=== PATIENT | female | born 1995 | race Caucasian/White ===

== ENCOUNTER 2017-09-13 18:34 | Emergency (ER) | payer MEDICAID, OTHER ==
[2017-09-13 18:34] VITALS: BMI 23.6
[2017-09-13 19:52] LABS: HCG,QUALITATIVE URINE POSITIVE (NEGATIVE)
[2017-09-13 19:57] LABS: SQUAMOUS EPITHIAL 3 /hpf (0-5); URINE BACTERIA RARE (<OCC); URINE BILIRUBIN NEGATIVE (NEGATIVE); URINE BLOOD NEGATIVE (NEGATIVE); URINE CLARITY Clear (Clear); URINE COLOR Colorless (YELLOW); URINE GLUCOSE (UA) NORMAL (Normal); URINE LEUKOCYTE ESTERASE NEG Leu/uL (Negative); URINE PROTEIN NEGATIVE (NEGATIVE); URINE UROBILINOGEN NORMAL mg/dL (0.2-1.0)
[2017-09-13 20:13] LABS: BASO # 0.1 K/uL (0.0-0.2); BASO % 0.7 % (0.0-2.0); EOS # 0.5 K/uL (0.0-0.7); EOS % 5.4 % (0.0-4.0); LYMPH # 2.2 K/uL (1.0-4.3); LYMPH % 25.3 % (20.0-40.0); MEAN CELL VOLUME 90.9 fL (81.0-99.0); MEAN CORPUSCULAR HEMOGLOBIN 31.6 pg (27.0-31.0); MEAN CORPUSCULAR HGB CONC 34.7 g/dL (33.0-37.0); MEAN PLATELET VOLUME 8.7 fL (7.2-11.7); MONO # 0.8 K/uL (0.0-0.8); MONO % 8.9 % (0.0-10.0); NEUT # 5.2 K/uL (1.8-7.0); NEUT % 59.7 % (50.0-75.0); RBC 3.79 Mil/uL (3.80-5.20); RED CELL DISTRIBUTION WIDTH 12.3 % (11.5-14.5); WHITE BLOOD COUNT 8.8 K/uL (4.8-10.8)
[2017-09-13 20:24] LABS: ALB/GLOB RATIO 1.1 (1.0-2.1); ALBUMIN 3.8 g/dL (3.5-5.0); ALT/SGPT 17 U/L (9-52); AST/SGOT 17 U/L (14-36); BLOOD UREA NITROGEN 9 mg/dL (7-17); CALCIUM 8.4 mg/dl (8.6-10.4); GFR AFRICAN-AMERICAN > 60; GFR NON-AFRICAN AMERICAN > 60
--- NOTE | 2017-09-13 22:30 | US ---
EXAM: US Pelvis Complete, Transabdominal US Duplex Arterial/Venous of the Pelvis, Complete EXAM DATE/TIME: Exam ordered 09/13/2017 7:57 PM CLINICAL HISTORY: 21 years old, female; Signs and symptoms; Lmp or gestational age (in weeks): 2-9-18; Other: Vag bleed; ; Additional info: Pregancy, bleeding TECHNIQUE: Real-time transabdominal pelvic ultrasound (complete) with image documentationReal-time duplex ultrasound scan of the arterial and venous flow of the pelvis with color Doppler flow and spectral waveform analysis. COMPARISON: No relevant prior studies available. FINDINGS: Uterus/cervix: The uterus measures 12.9 x 6.7 x 7.9 cm. The cervix measures a 3.6 cm in length. . There is a single intrauterine gestational sac measuring 3.7 x 2.0 x 3.7 6 cm for a mean sac diameter of 3.5 cm for menstrual age of 8 weeks and 4 days. A yolk sac is present. The amnion is visible. There is a pole the crown-rump length measurement of 1.96 cm for a menstrual age of 8 weeks and 4 days. Cardiac activity is noted at a rate of 163 beats per minute. A subchorionic hemorrhage is present along the left lateral margin of the gestational sac measured 2.5 x 1.6 x 1.3 cm. Right ovary: The right ovary measures 3.8 x 2.1 x 3.3 cm.. A hypoechoic area with a hypervascular rim is noted in the right ovary. The appearance is consistent with a normal corpus luteum cyst. It measures 2 cm in greatest diameter. No torsion. Left ovary: The left ovary measures 3.1 x 1.6 x 2.6 cm. Blood flow is seen in the left ovary on color Doppler examination. Free fluid: No free fluid. Bladder: Unremarkable as visualized. Wall is normal thickness for degree of distention. IMPRESSION: 1. Single live intrauterine with an estimated menstrual age of 8 weeks and 4 days plus or -0 weeks and 4 days. Expected date of delivery 04/21/2018.. 2. Small subchorionic hemorrhage.
--- NOTE | 2017-09-13 22:36 | C.PDOC ---
History Of Present Illness 21 year old female presents to the ED complaining of vaginal spotting joana began today. Patient is currently 8 weeks . Denies any dysuria, abdominal or pelvic pain, nausea, vomiting, or fever. Time Seen by Provider: 09/13/17 19:39 Chief Complaint (Nursing): Female Genitourinary History Per: Patient History/Exam Limitations: no limitations Onset/Duration Of Symptoms: Days (x1) Current Symptoms Are (Timing): Still Present Severity: None Pain Scale Rating Of: 0 Abnormal Vaginal Bleeding: Yes Last Menstral Period: 07/16/17 : 2 Para: 1 Past Medical History Reviewed: Historical Data, Nursing Documentation, Vital Signs Vital Signs: Last Vital Signs Temp 98.5 F 09/13/17 23:18 Pulse 63 09/13/17 23:18 Resp 18 09/13/17 23:18 BP 97/64 L 09/13/17 23:18 Pulse Ox 97 09/13/17 23:18 - Medical History PMH: No Chronic Diseases Surgical History: No Surg Hx - [facility] Procedures INJECT RH IMMUNE GLOBUL (04/19/14) MANUAL ASSIST DELIV NEC (04/19/14) REPAIR OB LACERATION NEC (04/19/14) Family History: States: No Known Family Hx - Social History Hx Alcohol Use: No Hx Substance Use: No - Immunization History Hx Tetanus Toxoid Vaccination: No Hx Influenza Vaccination: No Hx Pneumococcal Vaccination: No Review Of Systems Except As Marked, All Systems Reviewed And Found Negative. Genitourinary: Positive for: Vaginal Bleeding Physical Exam - Physical Exam Appears: Non-toxic, No Acute Distress Skin: Normal Color, Warm, Dry Head: Atraumatic, Normacephalic Eye(s): bilateral: Normal Inspection, PERRL, EOMI Oral Mucosa: Moist Neck: Normal ROM, Supple Chest: Symmetrical Cardiovascular: Rhythm Regular, No Murmur Respiratory: Normal Breath Sounds, No Accessory Muscle Use, No Rales, No Rhonchi , No Wheezing Gastrointestinal/Abdominal: Soft, No Tenderness, No Guarding, No Rebound Extremity: Bilateral: Atraumatic, Normal Color And Temperature, Normal ROM Neurological/Psych: Oriented x3, Normal Speech Gait: Steady ED Course And Treatment - Laboratory Results Result Diagrams: 09/13/17 20:09 09/13/17 20:09 O2 Sat by Pulse Oximetry: 98 (RA) Pulse Ox Interpretation: Normal - CT Scan/US US Other Rad Studies (CT/US): Read By Radiologist, Radiology Report Reviewed CT/US Interpretation: FINDINGS: Uterus/cervix: The uterus measures 12.9 x 6.7 x 7.9 cm. The cervix measures a 3.6 cm in length. . There is a single intrauterine gestational sac measuring 3.7 x 2.0 x 3.7 6 cm for a mean sac diameter. of 3.5 cm for menstrual age of 8 weeks and 4 days. A yolk sac is present. The amnion is visible. There is a pole the crown-rump length measurement of 1.96 cm for a menstrual age of 8 weeks. and 4 days. Cardiac activity is noted at a rate of 163 beats per minute. A subchorionic hemorrhage is present along the left lateral margin of the gestational sac measured. 2.5 x 1.6 x 1.3 cm. Right ovary: The right ovary measures 3.8 x 2.1 x 3.3 cm.. A hypoechoic area with a hypervascular. rim is noted in the right ovary. The appearance is consistent with a normal corpus luteum cyst. It. measures 2 cm in greatest diameter. No torsion. Left ovary: The left ovary measures 3.1 x 1.6 x 2.6 cm. Blood flow is seen in the left ovary on color. Doppler examination. Free fluid: No free fluid. Bladder: Unremarkable as visualized. Wall is normal thickness for degree of distention. IMPRESSION: 1. Single live intrauterine with an estimated menstrual age of 8 weeks and 4 days plus or -. 0 weeks and 4 days. Expected date of delivery 04/21/2018.. 2. Small subchorionic hemorrhage. Thank you for allowing us to participate in the care of your patient. Dictated and Authenticated by: Grace Sánchez MD. 09/13/2017 10:30 PM Eastern Time ([place] & [place]) Progress Note: Ordered work-up including blood work, type and screen, urine, and ultrasound. Ultrasound findings discussed with patient Disposition Counseled Patient/Family Regarding: Studies Performed, Diagnosis, Need For Followup - Disposition Referrals: 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 I have reviewed the chart and agree that the record accurately reflects my personal performance of the history, physical exam, medical decision making, and the department course for this patient. I have also personally directed, reviewed, and agree with the discharge instructions and disposition.
[2017-09-13 23:20] VITALS: BP 97/64; PULSE 63; RESP 18; TEMP 98.5
[2017-09-13 23:29] VITALS: O2SAT 98
== END 2017-09-13 23:55 | disposition home or self-care (01) ==
LOC: C.ER 18:34
DX: O20.9 Hemorrhage in early pregnancy, unspecified (principal); Z3A.08 8 weeks gestation of pregnancy
CPT/HCPCS: 76801; 80053; 81001; 84702; 84703; 85025; 86850; 86900; 99285; J2792

== ENCOUNTER 2018-04-15 19:03 | Inpatient (IN) | payer OTHER ==
--- NOTE | 2018-04-15 19:44 | OBHP ---
Datetime: 04/15/2018 19:15 IP Adm Impression: Term, intrauterine IP Admit Plan: Admit to unit Admit Comment, IP Provider: at 38.4wks presents to L_D with complaint of contractions since 6:30am that has increased in severity since 5:30pm today. Pt denies leakage of fluid and vaginal blee ding. Reports movements. Admit to Labor and Delivery- see admission note for full H_P. F. Leonardoa D.O. Pelvic Type - PN: Adequate General - PN: Normal Presentation-Admit: Vertex FHR - Baseline A Provider: 130s Membranes, Provider: Intact Vital Signs Provider: Within Normal Limits IP Chief Complaint: Uterine contractions NICHD Variability Prov Fetus A: Moderate 6-25bpm NICHD Accel Fetus A IP Provider: 15X15 FHR Category Provider Fetus A: Category I NICHD Decel Fetus A IP Provider: None Dilatation, Provider: 4 Effacement, Provider: 80 Station, Provider: -2
[2018-04-15 19:52] VITALS: BMI 26.9
[2018-04-15] MEDS ORDERED: Lactated Ringer's 1,000 ML IV SCH (20:00)
[2018-04-15] MEDS ORDERED: Nalbuphine HCL 10 mg/ml Ampule IVP ONE (20:05)
--- NOTE | 2018-04-15 20:12 | OBADHP ---
Datetime: 04/15/2018 19:15 Admit Comment, IP Provider: at 38.4wks ANTIONETTE: 04/25/18 per patient presents to L_D with compla int of contractions since 6:30am that has increased in severity since 5:30pm today. Pt denies leakage of fluid and vaginal bleeding. Reports movements. PNC: [facility]- no records available for review POb: FTVD x 2; no complications largest baby _7lb PGYN: denies STDs/fibroids/cysts PMHx: denies PSHX: denies ALL: NKDA Meds: PNV SHX: denies alcohol/tobacco/illicit drug use FHX: denies SVE: 80/-2 intact membranes Adequate Pelvis TOCO: q1-2 min EFM: 130s, mod variability (+) accels (-) decels Vertex presentation confirmed by bedside US _7lb by Ashley A/P: 22yo at 38.4wks - Labor 1) admit to L_D 2) NPC labs ordered- no chart available for review 3) IVF; Continuous EFM/TOCO 4) GBS unknown 5) Pain management- nubain x 1 dose given - Epidural PRN 6) for AROM on next exam 7) Continue to monitor Rima Reed D.OShira Pelvic Type - PN: Adequate General - PN: Normal Presentation-Admit: Vertex FHR - Baseline A Provider: 130s Membranes, Provider: Intact Comments, ACOG Physical Exam: Vital Signs Provider: Within Normal Limits IP Chief Complaint: Uterine contractions NICHD Variability Prov Fetus A: Moderate 6-25bpm NICHD Accel Fetus A IP Provider: 15X15 FHR Category Provider Fetus A: Category I NICHD Decel Fetus A IP Provider: None Dilatation, Provider: 4 Effacement, Provider: 80 Station, Provider: -2 IP Adm Impression: Term, intrauterine IP Admit Plan: Admit to unit
[2018-04-15 20:36] LABS: BASO % 0.4 % (0.0-2.0); EOS # 0.1 K/uL (0.0-0.7); EOS % 0.6 % (0.0-4.0); HEMOGLOBIN 12.5 g/dL (11.0-16.0); LYMPH % 21.2 % (20.0-40.0); MEAN CELL VOLUME 91.7 fL (81.0-99.0); MEAN CORPUSCULAR HEMOGLOBIN 31.7 pg (27.0-31.0); MEAN CORPUSCULAR HGB CONC 34.6 g/dL (33.0-37.0); MONO # 0.8 K/uL (0.0-0.8); MONO % 8.7 % (0.0-10.0); NEUT # 6.5 K/uL (1.8-7.0); NEUT % 69.1 % (50.0-75.0); NRBC % 0.1 % (0.0-2.0); RBC 3.94 Mil/uL (3.80-5.20); WHITE BLOOD COUNT 9.4 K/uL (4.8-10.8)
[2018-04-15 20:45] LABS: SQUAMOUS EPITHIAL 3 /hpf (0-5); URINE BACTERIA RARE (<OCC); URINE BILIRUBIN NEGATIVE (NEGATIVE); URINE BLOOD 2+ (NEGATIVE); URINE CLARITY Clear (Clear); URINE COLOR Yellow (YELLOW); URINE GLUCOSE (UA) NORMAL (Normal); URINE LEUKOCYTE ESTERASE NEG Leu/uL (Negative); URINE PROTEIN NEGATIVE (NEGATIVE); URINE UROBILINOGEN NORMAL mg/dL (0.2-1.0)
[2018-04-15 20:52] LABS: ALB/GLOB RATIO 1.3 (1.0-2.1); ALBUMIN 3.7 g/dL (3.5-5.0); ALT/SGPT 13 U/L (9-52); AST/SGOT 19 U/L (14-36); BLOOD UREA NITROGEN 7 mg/dL (7-17); GFR NON-AFRICAN AMERICAN > 60
[2018-04-15 20:53] LABS: CALCIUM 8.4 mg/dl (8.6-10.4)
[2018-04-15 21:06] LABS: BARBITURATES, UR NEGATIVE (NEGATIVE); BENZODIAZEPINES, UR NEGATIVE (NEGATIVE); OPIATES, UR NEGATIVE (NEGATIVE); PHENCYCLIDINE, UR NEGATIVE (NEGATIVE)
--- NOTE | 2018-04-15 21:18 | OBDS ---
MATERNAL INFORMATION Estimated Blood Loss (ml): 200 Maternal Complications: None LABOR SUMMARY EDC: 04/25/2018 00:00 No. Babies in Womb: 1 Attempted: No LABOR INFORMATION Reason for Induction: Not Applicable Onset of Labor: 04/15/2018 06:30 Complete Dilatation: 04/15/2018 20:50 Group B Beta Strep: UNKNOWN Steroids Given: None MEMBRANES Membranes Rupture Method: Spontaneous Rupture of Membranes: 04/15/2018 20:16 Length of Rupture (hrs): 0.65 Amniotic Fluid Color: Clear Amniotic Fluid Amount: Small Amniotic Fluid Odor: Normal STAGES OF LABOR Stage 1 hrs: 14 Stage 1 min: 20 Stage 2 hrs: 0 Stage 2 min: 5 Stage 3 hrs: 0 Stage 3 min: 3 Total Time in Labor hrs: 14 Total Time in Labor min: 28 VAGINAL DELIVERY Episiotomy: None Laceration Type: None Laceration Repair Note: Pt fully dilated and pushing. Head delivered OA, shoulders and body delivere d without difficulty. Mouth and nose suctioned. Cord clamped and cut. Cord segment/cord blood collect ed. Placenta delivered intact- spontaneous. No lacerations. EBL: 200cc. viable female 6lb 5oz apgars 9/9 Sponge Count Correct: Yes Sharps Count Correct: Yes BABY A INFORMATION Delivery Date/Time: 04/15/2018 20:55 Method of Delivery: Vaginal Born in Route : No : N/A Forceps: N/A Vacuum Extraction: N/A Shoulder Dystocia : No SHOULDER DYSTOCIA BABY A Delivery Date/Time: 04/15/2018 20:55 PRESENTATION/POSITION BABY A Presentation: Cephalic Cephalic Presentation: Vertex Vertex Position: Right Occipital Anterior Breech Presentation: N/A PLACENTA INFORMATION BABY A Placenta Delivery Time : 04/15/2018 20:58 Placenta Method of Delivery: Spontaneous Placenta Status: Delivered SCORES BABY A Heart Rate 1 min: >100 bpm Resp Effort 1 min: Good Cry Reflex Irritability 1 min: Cough or Sneeze or Pulls Away Muscle Tone 1 min: Active Motion Color 1 min: Body [place], Extremities Blue SCORE 1 MIN: 9 Heart Rate 5 min: >100 bpm Resp Effort 5 min: Good Cry Reflex Irritability 5 min: Cough or Sneeze or Pulls Away Muscle Tone 5 min: Active Motion Color 5 min: Body [place], Extremities Blue SCORE 5 MIN: 9 INFORMATION BABY A Gestational Age at Delivery: 38.4 Gestational Status: Term Outcome : Liveborn Condition : Stable Infant Sex: Female IDENTIFICATION/MEDS BABY A ID Band Number: [id number] ID Band Location: Left Leg; Left Arm Sensor Applied: Yes Sensor Number: [id number] Sensor Location : Cord Clamp WEIGHT/LENGTH BABY A Infant Birthweight (gms): 2850 Weight (lb): 6 Infant Weight (oz): 5 Length Inches: 18.50 Infant Length cms: 47.0 CORD INFORMATION BABY A No. Cord Vessels: 3 Nuchal Cord : N/A Cord Blood Taken: Yes Suction: Mouth; Nose ASSESSMENT BABY A Infant Complications: None Physical Findings at Delivery: Within Normal Limits Infant Respirations: Appears Normal Cargo Agent/ALS Called : No Care By: DR GANNON Transferred To: Remains with Mother
[2018-04-15 21:21] LABS: HEPATITIS B SURFACE AG Negative (NEGATIVE)
[2018-04-16 08:30] LABS: BASO % 0.2 % (0.0-2.0); EOS % 0.3 % (0.0-4.0); LYMPH # 1.4 K/uL (1.0-4.3); LYMPH % 14.1 % (20.0-40.0); MEAN CELL VOLUME 92.2 fL (81.0-99.0); MEAN CORPUSCULAR HEMOGLOBIN 32.6 pg (27.0-31.0); MEAN CORPUSCULAR HGB CONC 35.3 g/dL (33.0-37.0); MEAN PLATELET VOLUME 10.5 fL (7.2-11.7); MONO # 0.8 K/uL (0.0-0.8); MONO % 8.2 % (0.0-10.0); NEUT # 7.8 K/uL (1.8-7.0); NEUT % 77.2 % (50.0-75.0); RBC 3.38 Mil/uL (3.80-5.20); RED CELL DISTRIBUTION WIDTH 12.8 % (11.5-14.5); WHITE BLOOD COUNT 10.1 K/uL (4.8-10.8)
[2018-04-16] MEDS: Multiple Vitamins Tab PO SCH (09:40)
[2018-04-16 09:52] VITALS: RESP 20
--- NOTE | 2018-04-16 11:17 | OBPPN ---
Datetime: 04/16/2018 10:32 PP Pain Prov: Within normal limits PP Nausea Prov: Denies PP Breasts Prov: Not Done PP Heart Prov: Normal PP Lungs Prov: Normal PP Abdomen/Uterus Prov: Normal PP Lochia Prov: Normal PP Vulva/Perineum Prov: Normal PP CVA Tenderness Prov: Normal PP Extremities Prov: Normal PP C/S Incision Prov: Not Applicable PP Progress Prov: Normal PP Comments Phys Exam Prov: FH below Umbilicus Mild Uterine tenderness PP Impression Prov: Normal progression; Pain PP Plan Prov: Continue present management PP Progress Note Prov: PPD # 1 S/P without complications C/O of mild pain and encouraged to take Motrin Q 6 hrs for few doses VSS Afebrile PP H_H 11.0/31.2 Rh Negative and baby Rh Positive. Will order Rhogam for mother + PPD and + Quanteferon. Will order Maternal CXR Advance care Probable discharge home in AM IP PP Procedures: None Vital Signs Provider PP: Reviewed; Within Normal Limits
--- NOTE | 2018-04-16 13:48 | RAD ---
Date of service: 04/16/2018 HISTORY: + PPD and Quantiferon COMPARISON: Chest dated 12/25/2017. TECHNIQUE: Chest PA and lateral FINDINGS: LUNGS: No active pulmonary disease.. Nipple shadow artifact seen overlying the lower lung oshea bilaterally. PLEURA: No significant pleural effusion identified. No pneumothorax apparent. CARDIOVASCULAR: No aortic atherosclerotic calcification present. Normal cardiac size. No pulmonary vascular congestion. OSSEOUS STRUCTURES: No significant abnormalities. VISUALIZED UPPER ABDOMEN: Normal. OTHER FINDINGS: None. IMPRESSION: No active disease.
[2018-04-17 07:30] VITALS: BP 90/64; PULSE 67; O2SAT 100
--- NOTE | 2018-04-17 09:30 | OBDCSUM ---
Datetime: 04/17/2018 09:02 Discharged to, Provider: Home Follow up at, Provider: [facility] Disch Instr Activity: Normal activity Disch Instr Diet: Regular Discharge Instructions, Provider: Routine instructions given Discharge Diagnosis, Provider: Term Delivered Discharge Time: 04/17/2018 10:00 Follow up in weeks, Provider: 6 weeks Contraception discussed, Prov: Yes Disch Activity Restrictions: No lifting; No sexual activity; Nothing in vagina - [place], tampon s, douche Discharge Comment, Provider: Patient interested in subdermal implant for contraception Discharge Diagnosis Prov Other: Rh negative Contraception counseling
--- NOTE | 2018-04-17 09:30 | OBPPN ---
Datetime: 04/17/2018 08:56 PP Pain Prov: Within normal limits PP Nausea Prov: Denies PP Flatus Prov: Yes PP BM Prov: Yes PP Breasts Prov: Normal PP Heart Prov: Normal PP Lungs Prov: Normal PP Abdomen/Uterus Prov: Normal PP Lochia Prov: Normal PP Vulva/Perineum Prov: Normal PP CVA Tenderness Prov: Normal PP Extremities Prov: Normal PP C/S Incision Prov: Not Applicable PP Progress Prov: Normal PP Comments Phys Exam Prov: Breasts: no cracked nipples Abdomen: Soft. (+) BS. Fundus firm, mobile, non tender, 1 FB below umbilicus. Minimal lochia rubra . Extremities: no calf tenderness, cyanosis or edema All other sytems reviewed and are negative PP Impression Prov: Normal progression PP Plan Prov: Discharge PP Progress Note Prov: Patient received in room 452, . Reports epigastric pain now impr ru with Tylenol. Ambulating and voiding without difficulty. P.E.: as above. Petite, in NAD. Awake, alert, oriented to time, person and place. Pleasant and co operative - PPD#1 H/H 11.0/31.2 Rh(-) Assessment: PPD#2, 22 y.o. P3, S/P . Rh(-) - S/P Rhogam. Afebrile, vital signs stable. Desire s subdermal implant for contraception. Clinically stable. Plan: 1) Discharge home 2) See full discharge instructions IP PP Procedures: None Vital Signs Provider PP: Reviewed; Within Normal Limits
[2018-04-17] MEDS ORDERED: Influenza Vaccine 60 MCG/0.5 ML SYR (3 yr & up) IM ONE (10:00)
[2018-04-17] MEDS: Multiple Vitamins Tab PO SCH (10:00)
[2018-04-17 19:50] VITALS: TEMP 99
== END 2018-04-17 15:48 | disposition home or self-care (01) | DRG 560 ==
LOC: C.EROB 19:03 → C.4D 19:25 → C.4M 22:45
PROVIDERS: ADMIT Obstetrics & Gynecology; ATTEND Obstetrics & Gynecology
PROC: 10E0XZZ Delivery of Products of Conception, External Approach (ICD-10-PCS; principal; 2018-04-15)
DX: O36.0930 Maternal care for other rhesus isoimmunization, third trimester, not applicable or unspecified (principal); O75.89 Other specified complications of labor and delivery; R76.11 Nonspecific reaction to tuberculin skin test without active tuberculosis; Z3A.38 38 weeks gestation of pregnancy; Z37.0 Single live birth